=== PATIENT | male | born 1960 ===

== ENCOUNTER 2020-11-26 09:24 | Observation (INO) | payer OTHER, SELFPAY ==
[2020-11-26] VITALS (11 sets, daily range): BP systolic 113–180; BP diastolic 62–90; PULSE 80–96; RESP 14–24; TEMP 36.5–36.9; O2SAT 93–98; BMI 25.4
--- NOTE | 2020-11-26 09:50 | ED_ITS ---
HPI - Nausea/Vomiting/Diarrhea General Chief complaint: Nausea/Vomiting/Diarrhea Stated complaint: food blockage //bubble mid chest Time Seen by Provider: 11/26/20 09:32 Source: patient Mode of arrival: Ambulatory Limitations: no limitations History of Present Illness HPI Narrative: Patient is a 60-year-old male with no past medical history presenting with epigastric pain. He states he was eating steak and potatoes 2 nights ago when he felt some of it got. He was able to get a piece of steak out but since then has really been unable to eat or drink anything. He is managing his own secretions. He says is if he drinks small amounts every 15 minutes or so it does go down however he drinks too much it builds up and he vomits. He is hungry he is not able to eat food. He denies any real specific pain shortness of breath or fever. 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 It has never lasted this long before Related Data Previous Rx's Medication Instructions Recorded omeprazole 20 mg PO DAILY #30 cap 11/26/20 Allergies Allergy/AdvReac Type Severity Reaction Status Date / Time PENICILLIN Allergy Mild A CHILD Uncoded 11/26/20 12:57 Review of Systems Review of Systems ROS Unobtainable: All systems reviewed & are unremarkable except as noted in HPI and below Constitutional Constitutional: Denies chills, Denies fever(s), Denies lethargy and Denies weakness Eyes Eyes: Denies change in vision, Denies eye discharge, Denies irritation and Denies loss of vision ENT Ears, Nose, Mouth, and Throat: Reports as per HPI and Denies dizziness Cardiovascular Cardiovascular: Denies chest pain, Denies irregular heart rhythm, Denies lightheadedness, Denies palpitations, Denies dyspnea, Denies dyspnea on exertion and Denies orthopnea Respiratory Respiratory: Denies cough, Denies dyspnea, Denies dyspnea on exertion and Denies wheezing Gastrointestinal Gastrointestinal: Denies abdominal pain, Denies change in bowel habits, Denies diarrhea, Denies nausea and Denies vomiting Musculoskeletal Musculoskeletal: Denies back pain and Denies deformity Integumentary/Breasts Skin/Breast: Denies pruritus, Denies erythema, Denies rash and Denies wounds Neurologic Neurologic: Denies dizziness, Denies loss of vision and Denies weakness Endocrine Endocrine: Denies palpitations Allergic/Immunologic Allergic/Immunologic: Denies wheezing Patient History Medical History Patient denies medical problems Surgical History Status post right rotator cuff repair Social History household members: spouse Smoking Status: Former smoker alcohol intake: current Smoking Status: Never smoker alcohol intake frequency: 0-2 drinks per day Substance Use Type: does not use Exam Initial Vital Signs Initial Vital Signs: Vital Signs Temperature 98.5 F 11/26/20 09:33 Pulse Rate 88 11/26/20 09:33 Respiratory Rate 14 11/26/20 09:33 Blood Pressure 121/76 11/26/20 09:33 Pulse Oximetry 97 11/26/20 09:33 GENERAL: Well-appearing, well-nourished and in no acute distress. HEENT: Head atraumatic,EOMI, pupils reactive, face symmetric, moist mucous membranes CARDIOVASCULAR: Regular rate and rhythm without murmurs, rubs or gallops. RESPIRATORY: Breath sounds equal bilaterally, no wheezes rales or rhonchi. ABDOMEN: Soft, nontender. Normoactive bowel sounds all 4 quadrants. No guarding or rebound. EXTREMITIES: Normal range of motion, no clubbing or edema. Neurovascularly intact NEUROLOGICAL: Alert and oriented x4.Normal gait and speech. Cranial nerves II through XII grossly intact. SKIN: Warm, dry, no laceration, no petechiae, no rashes or lesions. Course Orders Ordered: ED Orders 11/26/20 09:39 Complete Blood Count AUTO DIFF Stat Comprehensive Metabolic Panel Stat Lipase Stat Troponin & CK Cardiac Panel Stat 11/26/20 09:51 EKG-12 Lead Stat 11/26/20 11:08 COVID19 -Nasal swab/Pre-Proc Stat Discontinued Medications Acetaminophen (Acetaminophen 325 Mg Tablet) 325 mg PO PACUNOW PRN PRN Reason: Pain, Mild (1-3) Diphenhydramine HCl (Diphenhydramine 50 Mg/Ml Vial) 25 mg IV NOW ONE Stop: 11/26/20 11:29 Last Admin: 11/26/20 11:51 Dose: 25 mg Documented by: LIZETTE Fentanyl (Fentanyl 100 Mcg/2 Ml Inj) 0 mcg IV Q5M PRN PRN Reason: Pain, Moderate (4-6) Glucagon (Glucagon,Human Recombinant 1 Mg/Ml Vial) 1 mg IV NOW ONE Stop: 11/26/20 09:50 Last Admin: 11/26/20 09:59 Dose: 1 mg Documented by: LIZETTE Sodium Chloride (Normal Saline 0.9%) 1,000 mls @ 150 mls/hr IV CONT DOREEN Last Admin: 11/26/20 09:59 Dose: 150 mls/hr Documented by: LIZETTE Sodium Chloride (Normal Saline 0.9%) 1,000 mls @ 150 mls/hr IV CONT DOREEN Last Admin: 11/26/20 11:44 Dose: Not Given Documented by: LIZETTE Metoclopramide HCl 10 mg/ (Sodium Chloride) 52 mls @ 208 mls/hr IV NOW ONE Stop: 11/26/20 11:29 Last Admin: 11/26/20 11:47 Dose: 208 mls/hr Documented by: LIZETTE Lactated Ringer's (Lactated Ringers) 1,000 mls @ 42 mls/hr IV NOW ONE Stop: 11/27/20 12:41 Last Admin: 11/26/20 12:54 Dose: 42 mls/hr Documented by: YUNIER Metoclopramide HCl (Metoclopramide 10 Mg/2 Ml Inj) 10 mg IV NOW PRN PRN Reason: Nausea And Vomiting Ondansetron HCl (Ondansetron 4 Mg/2 Ml Inj) 4 mg IV NOW PRN PRN Reason: Nausea And Vomiting Pantoprazole Sodium (Pantoprazole 40 Mg Vial) 40 mg IV NOW ONE Stop: 11/26/20 11:33 Last Admin: 11/26/20 11:51 Dose: 40 mg Documented by: LIZETTE Vital Signs Vital signs: Vital Signs - 8 hr 11/26/20 11:14 Pulse Rate 89 Pulse Oximetry 97 MDM - Nausea/Vomiting/Diarrhea Lab Data Attestation: I reviewed the patient's lab results. Result diagrams: 11/26/20 09:39 11/26/20 09:39 Labs: Lab Results 11/26/20 11/26/20 11/26/20 Range/Units 09:39 09:39 09:39 WBC 6.3 (4.5-11.0) X10^3/uL RBC 4.92 (4.5-5.9) X10^6/uL Hgb 15.4 (13.5-17.5) g/dL Hct 44.1 (41-53) % MCV 89.8 (80-100) fL MCH 31.3 (26-34) PG MCHC 34.9 (30-36) % RDW 13.2 (11.6-14.8) % Plt Count 234 (150-400) X10^3/uL Neut % (Auto) 72.0 (50-75) % Lymph % (Auto) 17.1 L (25-40) % [place] % (Auto) 7.1 (3-14) % Eos % (Auto) 2.9 (2-4) % Baso % (Auto) 0.9 (0-2) % Neut # (Auto) 4600 (7557-5983) /uL Lymph # (Auto) 1100 (4272-8566) /uL [place] # (Auto) 400 (0-900) /uL Eos # (Auto) 200 (0-450) /uL Baso # (Auto) 100 (0-100) /uL Sodium 140 (137-145) mmol/L Potassium 4.2 (3.4-5.1) mmol/L Chloride 107 (98-107) mmol/L Carbon Dioxide 26 (22-32) mmol/L BUN 23 H (9-20) mg/dL Creatinine 0.89 (0.66-1.25) mg/dL Estimated GFR > 60.0 (>60) mL/min BUN/Creatinine Ratio 25.8 H (6-22) Glucose 118 H (70-100) mg/dL Calcium 9.7 (8.4-10.2) mg/dL Total Bilirubin 0.8 (0.2-1.3) mg/dL AST 33 (17-59) IU/L ALT 25 (<50) IU/L Alkaline Phosphatase 78 (38-126) U/L Total Creatine Kinase 124 (55-170) U/L CK-MB (CK-2) 1.19 (<2.37) ng/mL CK-MB (CK-2) Rel Index 1.0 L (1.5-5.0) % Troponin I < 0.012 (0.01-0.034) ng/mL Total Protein 8.2 (6.3-8.2) g/dL Albumin 4.9 (3.5-5.0) g/dL Globulin 3.3 (1.7-4.1) g/dL Albumin/Globulin Ratio 1.5 (1.0-2.8) Lipase 39 (23-300) U/L SARS-CoV-2 (PCR) (Negative) 11/26/20 Range/Units 11:08 WBC (4.5-11.0) X10^3/uL RBC (4.5-5.9) X10^6/uL Hgb (13.5-17.5) g/dL Hct (41-53) % MCV (80-100) fL MCH (26-34) PG MCHC (30-36) % RDW (11.6-14.8) % Plt Count (150-400) X10^3/uL Neut % (Auto) (50-75) % Lymph % (Auto) (25-40) % [place] % (Auto) (3-14) % Eos % (Auto) (2-4) % Baso % (Auto) (0-2) % Neut # (Auto) (1941-1945) /uL Lymph # (Auto) (1816-3297) /uL [place] # (Auto) (0-900) /uL Eos # (Auto) (0-450) /uL Baso # (Auto) (0-100) /uL Sodium (137-145) mmol/L Potassium (3.4-5.1) mmol/L Chloride (98-107) mmol/L Carbon Dioxide (22-32) mmol/L BUN (9-20) mg/dL Creatinine (0.66-1.25) mg/dL Estimated GFR (>60) mL/min BUN/Creatinine Ratio (6-22) Glucose (70-100) mg/dL Calcium (8.4-10.2) mg/dL Total Bilirubin (0.2-1.3) mg/dL AST (17-59) IU/L ALT (<50) IU/L Alkaline Phosphatase (38-126) U/L Total Creatine Kinase (55-170) U/L CK-MB (CK-2) (<2.37) ng/mL CK-MB (CK-2) Rel Index (1.5-5.0) % Troponin I (0.01-0.034) ng/mL Total Protein (6.3-8.2) g/dL Albumin (3.5-5.0) g/dL Globulin (1.7-4.1) g/dL Albumin/Globulin Ratio (1.0-2.8) Lipase (23-300) U/L SARS-CoV-2 (PCR) Negative (Negative) ECG Data Attestation: I personally reviewed and interpreted this ECG as follows: Prior ECG tracings: not available for review Interpretation: Sinus rhythm rate 69 p.r. interval 118 QRS [address] changes MDM Narrative Medical decision making narrative: The patient was given glucagon and a carbonated beverage caffeinated beverage pain immediately at. At attempt at Reglan Benadryl and Protonix initially patient thought he may have had improve ment however after drinking more a came up again. 11:00am-Dr. Valenzuela updated patient's symptoms test results at this time cannot go to the OR in till 5:00 p.m. and can go up stairs at this time. Discharge Plan Departure Patient Disposition: Admitted as Observation Clinical Impression: Esophageal foreign body Admit Date/Time: 11/26/20 11:24 Admit Provider: Trey Valenzuela
[2020-11-26 09:54] LABS: Add Manual Diff / Slide Review NO; Basophils Absolute Auto 100 /uL (0-100); Basophils Percent Auto 0.9 % (0-2); Eosinophils Absolute Auto 200 /uL (0-450); Eosinophils Percent Auto 2.9 % (2-4); Hematocrit 44.1 % (41-53); Hemoglobin 15.4 g/dL (13.5-17.5); Lymphocytes Absolute Auto 1100 /uL (1100-4500); Lymphocytes Percent Auto 17.1 % (25-40); Mean Corpuscular HGB Conc 34.9 % (30-36); Mean Corpuscular Hemoglobin 31.3 PG (26-34); Mean Corpuscular Volume 89.8 fL (80-100); Monocytes Absolute Auto 400 /uL (0-900); Monocytes Percent Auto 7.1 % (3-14); Neutrophils Absolute Auto 4600 /uL (1500-7000); Platelet Count 234 X10^3/uL (150-400); Red Blood Cell Count 4.92 X10^6/uL (4.5-5.9); Red Cell Distribution Width 13.2 % (11.6-14.8); White Blood Cell Count 6.3 X10^3/uL (4.5-11.0)
[2020-11-26 09:59] LABS: Alanine Aminotransferase 25 IU/L (<50); Albumin 4.9 g/dL (3.5-5.0); Albumin Globulin Ratio 1.5 (1.0-2.8); Alkaline Phosphatase 78 U/L (38-126); Aspartate Aminotransferase 33 IU/L (17-59); BUN Creatinine Ratio 25.8 (6-22); Bilirubin Total 0.8 mg/dL (0.2-1.3); Blood Urea Nitrogen 23 mg/dL (9-20); Calcium 9.7 mg/dL (8.4-10.2); Carbon Dioxide 26 mmol/L (22-32); Chloride 107 mmol/L (98-107); Estimated Glomerular Filt Rate > 60.0 mL/min (>60); Globulin 3.3 g/dL (1.7-4.1); Glucose 118 mg/dL (70-100); HEMOLYSIS < 15 (0-50); Lipase 39 U/L (23-300); Potassium 4.2 mmol/L (3.4-5.1); Sodium 140 mmol/L (137-145); Total Protein 8.2 g/dL (6.3-8.2)
[2020-11-26] MEDS: SODIUM CHLORIDE 0.9% 1,000 ML 150 ML IV (09:59)
[2020-11-26] MEDS: GLUCAGON,HUMAN RECOMBINANT 1 MG/ML VIAL IV (09:59)
[2020-11-26 10:07] LABS: Creatine Kinase 124 U/L (55-170)
[2020-11-26 10:20] LABS: Troponin I < 0.012 ng/mL (0.01-0.034)
[2020-11-26 10:23] LABS: Creatine Kinase MB 1.19 ng/mL (<2.37)
[2020-11-26 11:30] LABS: COVID19 -Nasal RAPID Negative (Negative)
[2020-11-26] MEDS: METOCLOPRAMIDE 10 MG in SODIUM CHLORIDE 0.9% 50 ML 208 ML IV (11:47)
[2020-11-26] MEDS: PANTOPRAZOLE 40 MG VIAL IV (11:51)
[2020-11-26] MEDS: diphenhydrAMINE 50 MG/ML VIAL 25 MG IV (11:51)
--- NOTE | 2020-11-26 12:26 | PC.NURSE ---
Pt reports eating steak on Wednesday evening, has food bolus stuck in throat. Has not eaten since. Breathing normally, speaking in full sentences.
[2020-11-26] MEDS: LACTATED RINGERS 1,000 ML 42 ML IV (12:54)
--- NOTE | 2020-11-26 13:14 | P.HP_ITS ---
History of Present Illness History of Present Illness Date Patient Seen: 11/26/20 Time Patient Seen: 13:15 Chief complaint: food blockage //bubble mid chest Narrative: A 60-year-old healthy male history of reflux disease who presents with a esophageal foreign body. Patient wants eating steak 2 days ago and feels he has something stuck in his esophagus. He has been able to handle his own secretions but when trialed on liquids within the emergency room he had emesis. Currently no chest or abdominal pain. No previous similar episodes. Patient History Medical History Patient denies medical problems Surgical History Status post right rotator cuff repair Family & Social History Social History: household members spouse Safety & Behavioral: Feels Safe in Current Yes Environment Been Physically Hurt or No Threatened By a Person Tobacco & Substance use: Smoking Status Former smoker alcohol intake current alcohol intake frequency 0-2 drinks per day Substance Use Type does not use Meds Home Medications and Allergies Home Medications Medication Instructions Recorded Confirmed Type No Known Home Medications 11/26/20 11/26/20 History Allergies Allergy/AdvReac Type Severity Reaction Status Date / Time PENICILLIN Allergy Mild A CHILD Uncoded 11/26/20 12:57 Review of Systems Review of Systems ROS: Yes All systems reviewed with the patient and are negative except as otherwise documented Exam Vital Signs (past 8 hours): - 11/26/20 09:33 11/26/20 11:14 11/26/20 11:30 Temperature 98.5 F Pulse Rate 88 89 80 Respiratory Rate 14 Blood Pressure 121/76 Pulse Oximetry 97 97 98 11/26/20 12:00 11/26/20 12:41 Temperature 98.0 F Pulse Rate 94 H 80 Respiratory Rate 16 Blood Pressure 127/62 Pulse Oximetry 97 98 Oxygen Delivery Method Room Air Narrative Exam Narrative: General-no acute distress, well nourished adult male HEENT-moist mucous membranes, no scleral icterus Neck-supple, no lymphadenopathy Chest- non labored respirations, clear to auscultation bilaterally Cardiac-regular rate no peripheral edema Abdomen-soft, nontender, non distended Extremities-warm, well perfused Neurological-alert and oriented, no focal deficits Objective Labs Result Diagrams: 11/26/20 09:39 11/26/20 09:39 Labs: Laboratory Results - last 24 hr 11/26/20 11/26/20 11/26/20 09:39 09:39 09:39 WBC 6.3 RBC 4.92 Hgb 15.4 Hct 44.1 MCV 89.8 MCH 31.3 MCHC 34.9 RDW 13.2 Plt Count 234 Neut % (Auto) 72.0 Lymph % (Auto) 17.1 L [place] % (Auto) 7.1 Eos % (Auto) 2.9 Baso % (Auto) 0.9 Neut # (Auto) 4600 Lymph # (Auto) 1100 [place] # (Auto) 400 Eos # (Auto) 200 Baso # (Auto) 100 Sodium 140 Potassium 4.2 Chloride 107 Carbon Dioxide 26 BUN 23 H Creatinine 0.89 Estimated GFR > 60.0 BUN/Creatinine Ratio 25.8 H Glucose 118 H Calcium 9.7 Total Bilirubin 0.8 AST 33 ALT 25 Alkaline Phosphatase 78 Total Creatine Kinase 124 CK-MB (CK-2) 1.19 CK-MB (CK-2) Rel Index 1.0 L Troponin I < 0.012 Total Protein 8.2 Albumin 4.9 Globulin 3.3 Albumin/Globulin Ratio 1.5 Lipase 39 SARS-CoV-2 (PCR) 11/26/20 11:08 WBC RBC Hgb Hct MCV MCH MCHC RDW Plt Count Neut % (Auto) Lymph % (Auto) [place] % (Auto) Eos % (Auto) Baso % (Auto) Neut # (Auto) Lymph # (Auto) [place] # (Auto) Eos # (Auto) Baso # (Auto) Sodium Potassium Chloride Carbon Dioxide BUN Creatinine Estimated GFR BUN/Creatinine Ratio Glucose Calcium Total Bilirubin AST ALT Alkaline Phosphatase Total Creatine Kinase CK-MB (CK-2) CK-MB (CK-2) Rel Index Troponin I Total Protein Albumin Globulin Albumin/Globulin Ratio Lipase SARS-CoV-2 (PCR) Negative Assessment & Plan Assessment and plan (1) Esophageal foreign body: Status: Acute Assessment & Plan narrative: 60-year-old man with a esophageal foreign body suspected food bolus. Handling secretions but not able to tolerate liquids. Will proceed with esophagoduodenoscopy under general anesthesia for diagnostic and therapeutic purpose. Technical details of the procedure were discussed with patient. Operative risks including bleeding infection perforation need for further procedure were discussed. His questions have been answered he is in agreement with this plan will proceed.
[2020-11-26 13:29] LABS: COVID19 - ADMIT (NP swab/PCR) Negative (Negative)
--- NOTE | 2020-11-26 13:34 | PM.OP.ENDO ---
Operative Date/Time/Diagnoses Date of procedure: 11/26/20 Time of procedure: 13:35 Pre-op diagnosis: Esophageal foreign body Post-op diagnosis: same Procedure & Clinicians Study performed: Esophagoduodenoscopy Same procedure as scheduled: Yes Indications: 60-year-old male presented to the emergency room with complaint of a foreign body in his throat after eating steak unable to tolerate liquids Surgeon: Trey Valenzuela Procedure Notes Procedure in detail: Patient was placed on the supine position and general anesthesia was induced she was intubated with an endotracheal tube. Time-out was performed. The scope was inserted into the mouth and advanced through the esophagus. In the distal esophagus there was a large food bolus was impacted. It was irrigated copiously and then with gentle pressure was moved forward into the stomach. There was no dorcas narrowing of the esophagus the EGD scope passed easily into the stomach through the esophagus. The esophageal mucosa was friable but there was no dorcas hemorrhage. It was copiously irrigated hemostasis was observed. Stomach was desufflated and scope removed. Patient tolerated procedure well. Specimen(s): none sent Complications: none Impression: Esophageal foreign body Post-procedure Recommendations: Other recommendation (Soft diet and omeprazole) Disposition: same day surgery
--- NOTE | 2020-11-26 14:01 | SUR.PHASEI ---
Pt sitting up drinking ice water without problems, VSS, denies pain or nausea.
--- NOTE | 2020-11-29 10:56 | PC.NURSE ---
Late Entry; NS infusion initiated on 11/23 at 09:59 stopped at time of discharge, 14:15. Metoclopramide infusion initiated at 11:47 complete at 12:04.
== END 2020-11-26 14:30 | disposition home or self-care (01) ==
LOC: ED 09:35 → AC 11:26
PROVIDERS: Admitting Provider Surgery; Emergency Provider Emergency Medicine; Referring Provider Emergency Medicine; Visit Provider Surgery
PROC: 0DJ08ZZ Inspection of Upper Intestinal Tract, Via Natural or Artificial Opening Endoscopic (ICD-10-PCS; CPT 43235; principal; 2020-11-26 13:00)
DX: T18.128A Food in esophagus causing other injury, initial encounter (principal); Z20.822 Contact with and (suspected) exposure to COVID-19
CPT/HCPCS: 43247; 36415; 80053; 82550; 82553; 83690; 84484; 85025; 87635; 93005; 93010; 96361; 96365; 96375; 99219; 99284; C9803; G0378; C9113; J1200; J1610; J2765